=== PATIENT | male | born 1970 | race Caucasian/White ===

== ENCOUNTER 2019-08-08 19:17 | Emergency (ER) | payer SELFPAY ==
--- NOTE | 2019-08-08 19:36 | ER ---
Nurse's Notes [facility] Name: Tino Lam Age: 49 yrs Sex: Male : 1970 Arrival Date: 08/08/2019 Time: 19:20 Bed 26 Private MD: Diagnosis: Local infection of the skin and subcutaneous tissue, unspecified Presentation: 08/08 19:28 Presenting complaint: Patient states: tick bite on R earlobe on Monday got infected ca1 and is draining clear fluid. Transition of care: patient was not received from another setting of care. Onset of symptoms was August 06, 2019. Risk Assessment: Do you want to hurt yourself or someone else? Patient reports no desire to harm self or others. Initial Sepsis Screen: Does the patient meet any 2 criteria? No. Patient's initial sepsis screen is negative. Does the patient have a suspected source of infection? No. Patient's initial sepsis screen is negative. Care prior to arrival: None. 19:28 Method Of Arrival: Ambulatory ca1 19:28 Acuity: LELA 4 ca1 Triage Assessment: 19:20 Bite description: bite sustained to right ear by a spider, animal information: tr5 vaccination(s) is not applicable. Historical: - Allergies: 19:29 No Known Allergies; ca1 - Home Meds: 19:29 None [Active]; ca1 - PMHx: 19:29 None; ca1 - Immunization history:: Adult Immunizations not up to date, Last tetanus immunization: not immunized per patient choice. - Social history:: Smoking status: Patient uses tobacco products, smokes two packs cigarettes per day. - Ebola Screening: : Patient negative for fever greater than or equal to 101.5 degrees Fahrenheit, and additional compatible Ebola Virus Disease symptoms Patient denies exposure to infectious person Patient denies travel to an Ebola-affected area in the 21 days before illness onset No symptoms or risks identified at this time. Screenin:20 Abuse screen: Denies threats or abuse. Nutritional screening: No deficits noted. tr5 Tuberculosis screening: No symptoms or risk factors identified. Fall Risk None identified. Assessment: 19:20 General: Appears in no apparent distress. Behavior is calm, cooperative, appropriate tr5 for age. Pain: Complains of pain in right ear. 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 Cardiovascular: Heart tones present. Respiratory: Airway is patent Respiratory effort is even, unlabored, Respiratory pattern is regular, symmetrical. GI: No signs and/or symptoms were reported involving the gastrointestinal system. : No signs and/or symptoms were reported regarding the genitourinary system. EENT:. Derm: Skin is intact, Skin is pink, warm \T\ dry. Wound noted right ear. Musculoskeletal: No signs and/or symptoms reported regarding the musculoskeletal system. Vital Signs: 19:29 BP 145 / 79; Pulse 95; Resp 17 S; Temp 98.9(O); Pulse Ox 98% on R/A; Weight 95.25 kg ca1 (R); Height 6 ft. 2 in. (187.96 cm) (R); Pain 0/10; 19:29 Body Mass Index 26.96 (95.25 kg, 187.96 cm) ca1 ED Course: 19:20 Patient arrived in ED. mr 19:21 Alessia Aguirre FNP-C is [facility]. kb 19:21 Kenny Rosario MD is Attending Physician. kb 19:29 Triage completed. ca1 19:29 Arm band placed on right wrist. ca1 19:30 Patient has correct armband on for positive identification. Bed in low position. Call ca1 light in reach. Side rails up X2. Pulse ox on. NIBP on. 19:41 Dano Taylor, FILIBERTO is Primary Nurse. tr5 19:57 No provider procedures requiring assistance completed. Patient did not have IV access tr5 during this emergency room visit. Administered Medications: 19:54 Drug: Bactrim (160 mg-800 mg (DS) 1 tablet Route: PO; tr5 19:54 Drug: Doxycycline 100 mg Route: PO; tr5 Outcome: 19:36 Discharge ordered by . kb 19:57 Discharged to home ambulatory. tr5 19:57 Condition: stable 19:57 Discharge instructions given to patient, family, Instructed on discharge instructions, follow up and referral plans. medication usage, Demonstrated understanding of instructions, follow-up care, medications, Prescriptions given X 2. 19:59 Patient left the ED. tr5 Signatures: Alessia Aguirre FNP-C FNP-Genoveva Heaven Zhang mr Megan, FILIBERTO Mojica RN ca1 Dano Taylor RN RN tr5
--- NOTE | 2019-08-08 19:37 | EDPHYS ---
Physician Documentation [facility] Name: Tino Lam Age: 49 yrs Sex: Male : 1970 Arrival Date: 08/08/2019 Time: 19:20 Bed 26 Private MD: ED Physician Kenny Rosario HPI: 08/08 19:31 This 49 yrs old Male presents to ER via Ambulatory with complaints of Insect kb Bite. 19:35 the patient presents with a swollen area of the pinna of right ear. Description: kb draining, erythematous, hot. Onset: The symptoms/episode began/occurred 2 day(s) ago. Possible cause(s):. 19:38 Associated signs and symptoms: Pertinent positives: discharge, erythema, swelling. kb Modifying factors: the symptoms are alleviated by nothing, the symptoms are aggravated by nothing. Severity of symptoms: At their worst the symptoms were mild, moderate, in the emergency department the symptoms are unchanged. The patient has not experienced similar symptoms in the past. The patient has not recently seen a physician. Pt reports he was bit by a tick on Monday, removed tick and it was all intact. Now has swelling, warmth and drainage to pinna of right ear. States "I read online that I should have it checked out so I came here.". Historical: - Allergies: 19:29 No Known Allergies; ca1 - Home Meds: 19:29 None [Active]; ca1 - PMHx: 19:29 None; ca1 - Immunization history:: Adult Immunizations not up to date, Last tetanus immunization: not immunized per patient choice. - Social history:: Smoking status: Patient uses tobacco products, smokes two packs cigarettes per day. - Ebola Screening: : Patient negative for fever greater than or equal to 101.5 degrees Fahrenheit, and additional compatible Ebola Virus Disease symptoms Patient denies exposure to infectious person Patient denies travel to an Ebola-affected area in the 21 days before illness onset No symptoms or risks identified at this time. ROS: 19:40 Constitutional: Negative for fever, chills, and weight loss, Neck: Negative for injury, kb pain, and swelling, Cardiovascular: Negative for chest pain, palpitations, and edema, Respiratory: Negative for shortness of breath, cough, wheezing, and pleuritic chest pain, Abdomen/GI: Negative for abdominal pain, nausea, vomiting, diarrhea, and constipation, Back: Negative for injury and pain, MS/Extremity: Negative for injury and deformity, Neuro: Negative for headache, weakness, numbness, tingling, and seizure. 19:40 Skin: Positive for erythema, swelling, of the pinna of right ear. Exam: 19:34 Constitutional: This is a well developed, well nourished patient who is awake, alert, kb and in no acute distress. Head/Face: Normocephalic, atraumatic. ENT: Nares patent. No nasal discharge, no septal abnormalities noted. Tympanic membranes are normal and external auditory canals are clear. Oropharynx with no redness, swelling, or masses, exudates, or evidence of obstruction, uvula midline. Mucous membranes moist. Neck: Trachea midline, no thyromegaly or masses palpated, and no cervical lymphadenopathy. Supple, full range of motion without nuchal rigidity, or vertebral point tenderness. No Meningismus. Chest/axilla: Normal chest wall appearance and motion. Nontender with no deformity. No lesions are appreciated. Cardiovascular: Regular rate and rhythm with a normal S1 and S2. No gallops, murmurs, or rubs. Normal PMI, no JVD. No pulse deficits. Respiratory: Lungs have equal breath sounds bilaterally, clear to auscultation and percussion. No rales, rhonchi or wheezes noted. No increased work of breathing, no retractions or nasal flaring. Abdomen/GI: Soft, non-tender, with normal bowel sounds. No distension or tympany. No guarding or rebound. No evidence of tenderness throughout. MS/ Extremity: Pulses equal, no cyanosis. Neurovascular intact. Full, normal range of motion. Neuro: Awake and alert, GCS 15, oriented to person, place, time, and situation. Cranial nerves II-XII grossly intact. Motor strength 5/5 in all extremities. Sensory grossly intact. Cerebellar exam normal. Normal gait. 19:34 Skin: abscess, that is small, of the pinna of right ear, with drainage, that is purulent, with surrounding cellulitis, that is mild. Vital Signs: 19:29 BP 145 / 79; Pulse 95; Resp 17 S; Temp 98.9(O); Pulse Ox 98% on R/A; Weight 95.25 kg ca1 (R); Height 6 ft. 2 in. (187.96 cm) (R); Pain 0/10; 19:29 Body Mass Index 26.96 (95.25 kg, 187.96 cm) ca1 MDM: 19:23 Patient medically screened. kb 19:28 Data reviewed: vital signs, nurses notes. Data interpreted: Pulse oximetry: on room air kb is 100 %. Interpretation: normal. Counseling: I had a detailed discussion with the patient and/or guardian regarding: the historical points, exam findings, and any diagnostic results supporting the discharge/admit diagnosis, the need for outpatient follow up, a family practitioner, to return to the emergency department if symptoms worsen or persist or if there are any questions or concerns that arise at home. 08/08 19:29 Order name: Wound Culture kb Administered Medications: 19:54 Drug: Bactrim (160 mg-800 mg (DS) 1 tablet Route: PO; tr5 19:54 Drug: Doxycycline 100 mg Route: PO; tr5 Disposition: 21:25 Co-signature as Attending Physician, Kenny Rosario MD. [email or web address] Disposition: 08/08/19 19:36 Discharged to Home. Impression: Local infection of the skin and subcutaneous tissue, unspecified. - Condition is Stable. - Discharge Instructions: Wound Infection, [id number]. - Prescriptions for Doxycycline Hyclate 100 mg Oral Tablet - take 1 tablet by ORAL route every 12 hours; 20 tablet. Bactrim DS 800- 160 mg Oral Tablet - take 1 tablet by ORAL route every 12 hours for 10 days; 20 tablet. - Medication Reconciliation Form, Thank You Letter, Antibiotic Education, Prescription Opioid Use form. - Follow up: Emergency Department; When: As needed; Reason: Worsening of condition. Follow up: Private Physician; When: 2 - 3 days; Reason: Recheck today's complaints, Continuance of care, Re-evaluation by your physician. Signatures: Dispatcher [employer] EDAlessia Zambrano FNP-C FNP-Ckb Lam, Pin, MD MD pkl Galina Guzman RN RN ca1 Dano Taylor RN RN tr5 Corrections: (The following items were deleted from the chart) 19:59 19:36 08/08/2019 19:36 Discharged to Home. Impression: Local infection of the skin and tr5 subcutaneous tissue, unspecified. Condition is Stable. Forms are Medication Reconciliation Form, Thank You Letter, Antibiotic Education, Prescription Opioid Use. Follow up: Emergency Department; When: As needed; Reason: Worsening of condition. Follow up: Private Physician; When: 2 - 3 days; Reason: Recheck today's complaints, Continuance of care, Re-evaluation by your physician. kb
[2019-08-08] MEDS ORDERED: SMZ./TMP. 800/160 MG TABLET ONE (19:44)
[2019-08-08] MEDS ORDERED: DOXYCYCLINE 100 MG CAP PO ONE (19:44)
== END 2019-08-08 19:59 | disposition home or self-care (01) ==
LOC: ER 19:17
DX: H60.11 Cellulitis of right external ear (principal); W57.XXXA Bitten or stung by nonvenomous insect and other nonvenomous arthropods, initial encounter; Y93.9 Activity, unspecified; Y92.9 Unspecified place or not applicable; F17.210 Nicotine dependence, cigarettes, uncomplicated
CPT/HCPCS: 87070; 87205; 99283